=== PATIENT | female | born 1965 | race Caucasian/White ===

== ENCOUNTER 2017-03-15 13:28 | Emergency (ER) | payer OTHER, SELFPAY ==
[2017-03-15] MEDS ORDERED: Ketorolac Tromethamine 30 MG/ML VIAL ONE (14:22)
[2017-03-15] MEDS ORDERED: Ondansetron HCl/PF 4 MG/2 ML Vial ONE (14:22)
[2017-03-15 14:28] LABS: #Eosinphils 0.2 thou/uL (0.0-0.7); #Lymphocytes 1.8 thou/uL (1.20-3.40); #Monocytes 0.4 thou/uL (0.11-0.59); #Neutrophils 3.3 thou/uL (1.40-6.50); %Basophils 0.8 % (0.0-1.0); %Lymphocytes 31.3 % (21.0-51.0); %Monocytes 6.2 % (0.0-10.0); Hematocrit 48.9 % (36.0-47.0); Mean Platelet Volume 5.7 fL (7.4-10.4); Red Blood Cell (RBC) Count 4.75 mill/uL (4.20-5.40); White Blood Cell (WBC) Count 5.6 thou/uL (4.8-10.8)
[2017-03-15 14:28] LABS: Bilirubin Negative (Negative); Blood, Urine Negative (Negative); Glucose, Urine (Dipstick) Negative (Negative); Ketone, Urine Negative (Negative); Nitrite Negative (Negative); Protein, Urine (Dipstick) Negative (Neg-Trace); Urobilinogen 0.2 mg/dL (0.2-1.0)
[2017-03-15 14:53] LABS: ALT (SGPT) 14 U/L (8-55); AST (SGOT) 14 U/L (5-34); Alkaline Phosphatase 49 U/L (40-150); Anion Gap 12 mmol/L (10-20); BUN (Urea Nitrogen) 9 mg/dL (9.8-20.1); Bilirubin, Total 1.1 mg/dL (0.2-1.2); Calc. Creatinine Clearance 0 mL/min (70-130); Calcium 9.2 mg/dL (7.8-10.44); Carbon Dioxide 25 mmol/L (22-29); Chloride 103 mmol/L (98-107); Estimated GFR-MDRD 72; Globulin 2.9 g/dL (2.4-3.5); Lipase 16 U/L (8-78); Protein, Total 7.1 g/dL (6.0-8.3)
--- NOTE | 2017-03-15 15:05 | CT ---
NONCONTRAST ENHANCED CT IMAGES OF ABDOMEN AND PELVIS: HISTORY: Patient with right-sided pain. FINDINGS: Noncontrast-enhanced CT images of the abdomen and pelvis are obtained. The lung bases are unremarka ble. The solid organs demonstrate no significant evidence of abnormality. No definite evidence of renal calculi seen. There is mild right-sided hydroureteral nephrosis. The right ureter is not definitively visualized in the distal aspect. Some calcification is seen in the pelvis. I cannot exclude the possibility o f a distal right ureteral calculus. It may be worthwhile to consider CT IVP to determine whether on e of these calcifications is actually a distal right ureteral calculus which may be causing the kimberly ent's symptoms. A normal appendix is seen. No other significant abnormality is seen. IMPRESSION: 1. Mild right-sided hydroureteral nephrosis. Distal right ureteral calculus cannot be excluded as the distal right ureter is difficult to follow along its entire course. There may be some calcifica tions in the expected course of the right ureter distally. 2. Normally visualized appendix. 3. Diverticulosis without evidence of obvious diverticulitis. POS: YURY
== END 2017-03-15 16:17 | disposition home or self-care (01) ==
LOC: ERS 13:28
DX: N13.2 Hydronephrosis with renal and ureteral calculous obstruction (principal); F32.9 Major depressive disorder, single episode, unspecified; F17.210 Nicotine dependence, cigarettes, uncomplicated
CPT/HCPCS: 74176; 80053; 81003; 83690; 85025; 96361; 96374; 96375; J1885; J2270; J2405

== ENCOUNTER 2018-05-17 11:22 | Emergency (ER) | payer OTHER | END 2018-05-17 12:00 | disposition home or self-care (01) | LOC: SCSER 11:22 | DX: S46.912A Strain of unspecified muscle, fascia and tendon at shoulder and upper arm level, left arm, initial encounter (principal); F31.9 Bipolar disorder, unspecified; F17.210 Nicotine dependence, cigarettes, uncomplicated; Z79.899 Other long term (current) drug therapy; W20.8XXA Other cause of strike by thrown, projected or falling object, initial encounter | CPT/HCPCS: 99283 ==

== ENCOUNTER 2021-11-17 13:34 | Outpatient (CLI) | payer OTHER | END 2021-11-17 13:35 | disposition home or self-care (01) | LOC: BICULT 13:34 | PROVIDERS: ATTEND Internal Medicine Nephrology | DX: N18.9 Chronic kidney disease, unspecified (principal) | CPT/HCPCS: 76770 ==